=== PATIENT | male | born 1960 | race Caucasian/White ===

== ENCOUNTER 2019-10-21 14:17 | Inpatient (IN) | payer OTHER, SELFPAY ==
[~2019-10-21] VITALS: Ht 167.6 cm; Wt 83.5 kg
--- NOTE | 2019-10-21 14:21 | NUR ---
Patient BIBA ALS accompanied by Jenae REYES, transferred to bed 10. RN evaluating patient at bedside.
[2019-10-21 14:22] VITALS: BP 120/78
[2019-10-21] MEDS ORDERED: NACL 0.9% 1,000 ML IV SCH (14:22)
[2019-10-21] MEDS ORDERED: ACETAMINOPHEN EXTRA STRENGTH 500 MG TAB PO ONE (14:25)
--- NOTE | 2019-10-21 14:37 | NUR ---
Patient taken to CT scan/x-ray via gurney by shoutr.
--- NOTE | 2019-10-21 14:38 | NUR ---
58 Y/O MALE BIBA ALS FROM HOME FOR ALTERED MENTAL STATUS. PER EMS PT WAS LAST SEEN NORMAL YESTERDAY. PT AOX1. UNABLE TO ANSWER QUESTIONS APPROPRIATELY. RR EVEN AND UNLABORED, SLIGHTLY TACHYPNIC. AROUSABLE TO VOICE. POSITIONED FOR COMFORT, HOB ELEVATED. MEDHX: DENIES
--- NOTE | 2019-10-21 14:47 | NUR ---
Patient returned from CT scan/x-ray. RN re-evaluating patient at bedside.
--- NOTE | 2019-10-21 14:53 | NUR ---
LAB AT BEDSIDE FOR BLOOD AND CULTURE DRAW
--- NOTE | 2019-10-21 14:58 | NUR ---
URINE COLLECTED FROM PT AND GIVEN TO NURSE ORTHOPAEDIC
[2019-10-21 15:07] LABS: BASOPHILS % (AUTO) 0.4 % (0.0-2.0); HEMATOCRIT 42.9 % (36-52); HEMOGLOBIN 14.8 g/dL (12.0-18.0); LYMPHOCYTES # (AUTO) 1.2 K/uL (2.0-11.5); LYMPHOCYTES % (AUTO) 26.1 % (20.5-51.1); MEAN CORPUSCULAR HEMOGLOBIN 33 pg (27-31); MEAN CORPUSCULAR HGB CONC 35 g/dL (33-37); MEAN CORPUSCULAR VOLUME 94.5 fL (80-94); MONOCYTES # (AUTO) 0.6 K/uL (0.8-1.0); MONOCYTES % (AUTO) 12.4 % (1.7-9.3); NEUTROPHILS # (AUTO) 2.8 K/uL (1.8-7.7); NEUTROPHILS % (AUTO) 60.1 % (42.2-75.2); PLATELET COUNT (AUTO) 192 K/uL (140-450); RED BLOOD CELL COUNT(AUTO) 4.54 MIL/uL (4.20-6.10); RED CELL DISTRIBUTION WIDTH 12.3 % (11.6-13.7); WHITE BLOOD COUNT (AUTO) 4.6 K/uL (4.8-10.8)
--- NOTE | 2019-10-21 15:07 | NUR ---
RT AT BEDSIDE FOR RESPIRATORY INTERVENTION
[2019-10-21 15:21] LABS: PROTHROMBIN TIME 10.1 secs (10.8-13.4)
[2019-10-21 15:29] LABS: ACETAMINOPHEN < 0.5 ug/ml (10-30); SALICYLATE < 2.8 mg/dL (2.8-20.0)
[2019-10-21 15:29] LABS: APPEARANCE,URINE CLEAR (CLEAR); BILIRUBIN,URINE NEGATIVE (NEGATIVE); BLOOD, URINE NEGATIVE (NEGATIVE); COLOR,URINE DARK YELLOW (YELLOW); LEUKOCYTE ESTERASE ,URINE NEGATIVE (NEGATIVE); NITRITE, URINE NEGATIVE (NEGATIVE); PH,URINE 6.5 (5.0-9.0); UGLUCOSE NEGATIVE (NEGATIVE)
[2019-10-21 15:42] LABS: BARBITURATE, URINE NEGATIVE ng/ml (NEG <=200); BENZODIAZEPINE, URINE NEGATIVE ng/mL (NEG <=200); CANNABINOID, URINE NEGATIVE ng/mL (NEG <=50); COCAINE, URINE NEGATIVE ng/mL (NEG <=300); OPIATE, URINE NEGATIVE ng/mL (NEG <=2000); PHENCYCLIDINE SCREEN,URINE NEGATIVE ng/mL (NEG <=25)
--- NOTE | 2019-10-21 15:59 | NUR ---
TROPONIN 0.082-- CRITICAL VALUE RECEIVED FROM LAB. DR VALLEJO MADE AWARE
[2019-10-21] MEDS ORDERED: ASPIRIN 325 MG TAB PO ONE (16:00)
[2019-10-21 16:12] LABS: ANION GAP 16.8 (8-16); CARBON DIOXIDE 23.2 mmol/L (21-32)
[2019-10-21 16:13] LABS: ALBUMIN 2.9 g/dL (3.4-5.0); TOTAL BILIRUBIN 0.7 mg/dL (0.0-1.0)
--- NOTE | 2019-10-21 17:57 | NUR ---
RESTING IN BED ON PHONE WITH FAMILY MEMBER. AWAKE AND ALERT. VSS. WILL CONTINUE TO MONITOR
--- NOTE | 2019-10-21 18:06 | NUR ---
DR BERG AT BEDSIDE SPEAKING WITH PT
[2019-10-21] MEDS: DEXT 5% / NACL 0.9% 500 ML IV SCH ×2 (18:16→21:49)
[2019-10-21] MEDS ORDERED: DEXT 5% /NACL 0.9% 1,000 ML IV SCH (18:22)
[2019-10-21] MEDS ORDERED: HYDROcodone/APAP 7.5/325 MG 1 TAB PO PRN ×2 (18:25→18:30)
[2019-10-21] MEDS ORDERED: NITROGLYCERIN 0.4 MG TAB SL PRN ×2 (18:25→18:30)
[2019-10-21] MEDS ORDERED: ACETAMINOPHEN 325 MG TAB PO PRN ×2 (18:25→18:30)
[2019-10-21] MEDS ORDERED: ONDANSETRON 4 MG/2 ML VIAL IM/IVP PRN ×2 (18:25→18:30)
[2019-10-21] MEDS ORDERED: DOCUSATE SODIUM 100 MG GELCAP PO PRN ×2 (18:25→18:30)
[2019-10-21] MEDS ORDERED: ALBUTEROL HFA MDI 90 MCG/ACTUATION 8 GM INH PRN ×2 (18:30→18:45)
[2019-10-21] MEDS ORDERED: MECLIZINE 25 MG TAB PO PRN ×2 (18:30→18:45)
--- NOTE | 2019-10-21 18:33 | NUR ---
COVID-19 SWAB COLLECTED FROM PT
[2019-10-21 18:42] LABS: PROTHROMBIN TIME 10.1 secs (10.8-13.4)
--- NOTE | 2019-10-21 18:57 | NUR ---
SPOKE TO PTS SON ZOROASTRIAN-- STATES HE WILL CALL BACK LATER FOR AN UPDATE.
[2019-10-21 19:05] LABS: CHOL/HDL RATIO 4.5 (1-4.5); FREE T4 (FREE THYROXINE) 1.12 ng/dL (0.76-1.46); MAGNESIUM 1.9 mg/dL (1.8-2.4); PHOSPHORUS 2.6 mg/dL (2.5-4.9); THYROID STIMULATING HORMONE 0.58 uIU/mL (0.34-3.74)
--- NOTE | 2019-10-21 19:18 | NUR ---
Pt report given to NAT LOCO. Transfer of care at this time.
--- NOTE | 2019-10-21 19:20 | NUR ---
REPORT RECIVED FROM CRUZITO JOHNS. CONTINUATION OF CARE.
[2019-10-21] MEDS: DEXT 5% /NACL 0.9% 1,000 ML IV SCH (19:30)
--- NOTE | 2019-10-21 20:48 | NUR ---
UA AT BEDSIDE.
[2019-10-21] MEDS ORDERED: METOPROLOL 25 MG TAB PO SCH (21:00)
[2019-10-21] MEDS ORDERED: POTASSIUM CHLORIDE 10 MEQ TABER PO ONE (21:00)
[2019-10-21] MEDS ORDERED: cefTRIAXone 1,000 MG VIAL ONE (22:06)
[2019-10-21] MEDS: ATORVASTATIN 20 MG TAB PO SCH (22:15)
--- NOTE | 2019-10-21 23:29 | NUR ---
PT A&O X 4. RESPIRATIONS ARE EVEN AND UNLABORED. PT VSS. PT DENIES PAIN AT THIS TIME.
--- NOTE | 2019-10-22 00:12 | NUR ---
PT RESPONSIVE TO VERBAL STIMULI. A&O X 4. RESPIRATIONS ARE EVEN AND UNLABORED. PT VSS. PT DENIES PAIN AT THIS TIME. BED IS LOCKED AND IN LOWEST POSITION.
--- NOTE | 2019-10-22 01:45 | NUR ---
SPOKE WITH PT SON JARON @ [phone]. GAVE REPORT TO HIM ABOUT PT CONDITION WITH PERMISSION OF PT.
[2019-10-22] MEDS: DEXT 5% / NACL 0.9% 500 ML IV SCH ×4 (01:55→14:12)
--- NOTE | 2019-10-22 02:02 | NUR ---
PT RESTIONG WITH EYES CLOSED. PT RESPONSIVE TO VERBAL STIMULI. A&O X 4. RESPIRATIONS ARE EVEN AND UNLABORED. PT REMAINS ON CAREER DEVELOPMENT SPECIALIST. PT VSS. PT DENIES PAIN AT THIS TIME. BED IS LOCKED AND IN LOWEST POSITION. ALL NEEDS MET AT THIS TIME.
--- NOTE | 2019-10-22 04:22 | NUR ---
PT RESPONSIVE TO VERBAL STIMULI. A&O X 4. SKIN IS WARM AND DRY TO TOUCH. NO SOB, O2SAT @ 98% RA. IV SITE REMAINS PATENT. PT REMAINS ON STRAIGHT TRUCK DRIVER. PT VSS. PT DENIES PAIN AT THIS TIME. BED IS LOCKED AND IN LOWEST POSITION. ALL NEEDS MET AT THIS TIME.
--- NOTE | 2019-10-22 06:05 | NUR ---
PT RESPONSIVE TO VERBAL STIMULI. A&O X 4. PT REMAINS ON SHEET METAL SHOP SUPERVISOR. PT VSS. PT DENIES PAIN AT THIS TIME. BED IS LOCKED AND IN LOWEST POSITION.
--- NOTE | 2019-10-22 07:33 | NUR ---
LAB AT BEDSIDE.
--- NOTE | 2019-10-22 07:40 | NUR ---
REPORT GIVEN TO AVRIL RN. TRANSFER OF CARE.
--- NOTE | 2019-10-22 08:27 | NUR ---
REPORT GIVEN TO CRUZITO JOHNS--PT REMAINS ON A TELE HOLD AWAKE ALERT DENIES PAIN, NO SOB, DENIES CP, OR HEADACHE----
--- NOTE | 2019-10-22 08:30 | NUR ---
RECEIVED REPORT FROM NAT ANDREA. TRANSFER OF CARE AT THIS TIME
[2019-10-22] MEDS ORDERED: DEXAMETHASONE 4 MG TAB PO SCH ×2 (09:00)
[2019-10-22] MEDS ORDERED: AZITHROMYCIN 250 MG TAB PO SCH (09:00)
[2019-10-22] MEDS ORDERED: ECOTRIN 81 MG TABEC PO SCH (09:00)
[2019-10-22] MEDS ORDERED: lisinopriL 5 MG TAB PO SCH (09:00)
--- NOTE | 2019-10-22 09:04 | NUR ---
TROPONIN 0.089-- DR BERG MADE AWARE
[2019-10-22] MEDS: ECOTRIN 81 MG TABEC PO SCH (09:12)
[2019-10-22] MEDS: METOPROLOL 25 MG TAB PO SCH ×2 (09:14→21:01)
[2019-10-22] MEDS: lisinopriL 5 MG TAB PO SCH (09:14)
[2019-10-22] MEDS: AZITHROMYCIN 250 MG TAB PO SCH (09:15)
--- NOTE | 2019-10-22 09:41 | NUR ---
RESTING IN BED AWAKE AND ALERT. NO COMPLAINTS AT THIS TIME. WILL CONTINUE TO MONITOR
[2019-10-22] MEDS: DEXT 5% /NACL 0.9% 1,000 ML IV SCH (11:10)
--- NOTE | 2019-10-22 11:46 | NUR ---
PT AWAKE AND ALERT. WAS GIVEN CELLPHONE. FAMILY INFORMED THAT THEY CAN CONTACT PT VIA CELLPHONE. NO COMPLAINTS AT THIS TIME. VSS
--- NOTE | 2019-10-22 12:26 | NUR ---
TROPONIN 0.070-- CRITICAL VALUE RECEIVED FROM LAB. DR BERG MADE AWARE.
--- NOTE | 2019-10-22 12:45 | NUR ---
PT RESTING IN BED, SIDE RAIL X1
--- NOTE | 2019-10-22 13:01 | NUR ---
PT RESTING IN BED, SIDE RAIL X1
--- NOTE | 2019-10-22 14:29 | NUR ---
EResting in bed watching television. No complaints at this time. Awake and alert. Will continue to monitor
--- NOTE | 2019-10-22 15:00 | NUR ---
RECEIVED REPORT FROM ELECT[employer]ODU[employer] SALES ENGINEER CRUZITO AT BEDSIDE FOR CONTINUITY OF CARE. PATIENT AOX3, VIETNAMESE SPEAKING. ABLE TO VERBALIZED NEEDS. RESPIRATIONS EVEN AND UNLABORED ON ROOM AIR. VS WNL. NO COMPLAINTS OF PAIN AT THIS TIME. IV SITE INTACT, ASYMPTOMATIC, INFUSING IVF WELL. PATIENT DX ALOC, NPO AT MOMENT, BUT STATING HUNGRY, WILL FORWARD PATIENT'S REQUEST TO DOCTOR. PT IS ON DROPLET PRECAUTION PENDING R/O COVID. ORIENTED PATIENT TO ROOM, TV, CALL LIGHT, BATHROOM. DROPLET PRECAUTIONS IN PLACE, CALL LIGHT WITHIN REACH, WILL CONTINUE TO MONITOR PATIENT.
--- NOTE | 2019-10-22 15:00 | NUR ---
report given to dino gutierrez. transfer of care at this time.
[2019-10-22 15:55] VITALS: BP 119/67
[2019-10-22] MEDS ORDERED: ATORVASTATIN 20 MG TAB PO SCH (17:00)
[2019-10-22] MEDS: ATORVASTATIN 20 MG TAB PO SCH (17:58)
--- NOTE | 2019-10-22 18:00 | NUR ---
ORDERED MEDICATIONS GIVEN TO PATIENT. PATIENT TOLERATED IT WELL. PATIENT CURRENTLY EATING DINNER. NO COMPLAINTS AT THIS TIME. WILL CONTINUE TO MONITOR PATIENT.
--- NOTE | 2019-10-22 18:17 | NUR ---
ORDERED MEDICATION GIVEN TO PATIENT. PATIENT TOLERATED IT WELL. NO COMPLAINTS AT THIS TIME. O2 88% ON 15L NRB, PATIENT AWARE HE NEEDS BEDREST AND TO BREATHE DEEPLY AND SLOWLY. IF ANXIOUS, CAN CALL RN FOR PRN MEDICATION. PATIENT VERBALIZED UNDERSTANDING. WILL CONTINUE TO MONITOR PATIENT. Addendum: 10/22/19 at 1929 by Yoan Swanson RN WRONG PATIENT.
--- NOTE | 2019-10-22 19:15 | NUR ---
REPORT GIVEN TO [employer]NER FORMER MACHINE OPERATOR NURSE FOR CONTINUITY OF CARE. PATIENT IN STABLE CONDITION.
--- NOTE | 2019-10-22 19:15 | NUR ---
RECEIVED PT AAOX4 - BUT NEED REINFORCEMENT MOST ESPECIALLY ON DATE AND TIME . NID - O2 SAT WNL - RA . IV SITE INTACT AND PATENT. DENIES ANY PAIN. SAFETY MEASURES IN PLACE - CALL LIGHT /URINAL WITHIN REACH . PLAN OF CARE DISCUSSED AND VERBALIZE UNDERSTANDING- NEEDS RE INFORCEMENT . ON TELE MONITOR . WILL CONT. TO MONITOR .
[2019-10-22 20:00] VITALS: BP 125/75
[2019-10-22] MEDS ORDERED: CRUSHER, PILL MC ONE (20:47)
--- NOTE | 2019-10-22 22:00 | NUR ---
MADE ROUNDS , I GOT TEL. CALL FROM PT'S BROTHER AND HE SAID HE WANTS TO KNOW ABOUT THE UPDATE W/ REGARD TO THE PT . I TOLD HIM W/ THAT MATTER THE DOCTOR WILL DISCUSS TO HIM ACCORDING TO HOSPITAL PROTOCOL AND PT. PERMISSION. HE GAVE HIS THE CONTACT NUMBERS.- WILL ENDORSE TO AM SHIFT .
[2019-10-23] VITALS: BP 120/70
--- NOTE | 2019-10-23 | NUR ---
MADE ROUNDS , NO S/SX OF ACUTE DISTRESS NOTED - O2 SAT WNL.CALL LIGHT WITHIN REACH.
--- NOTE | 2019-10-23 02:00 | NUR ---
SLEEPING - CHEST RISE AND FALL EQUALLY - WILL CONT. TO MONITOR . CALL LIGHT WITHIN REACH .
[2019-10-23 04:00] VITALS: BP 122/76
--- NOTE | 2019-10-23 04:00 | NUR ---
MADE ROUNDS . NO S/SX OF ACUTE DISTRESS NOTED AT THIS TIME. O2 SAT WNL .
[2019-10-23] MEDS: DEXT 5% /NACL 0.9% 1,000 ML IV SCH (04:20)
--- NOTE | 2019-10-23 06:00 | NUR ---
NO COMPLAIN MADE . WILL CONT. TO MONITOR.
--- NOTE | 2019-10-23 07:10 | NUR ---
ENDORSED TO AM SHIFT - PT- STABLE .
--- NOTE | 2019-10-23 07:10 | NUR ---
Received report from pm nurse Leny. Pt resting in bed, awake, no signs of distress. Respirations even & nonlabored in room air. Right forearm IV 20G intact with ongoing D5NS @ 80ml/h.
[2019-10-23 07:42] LABS: ANION GAP 13.7 (8-16); CARBON DIOXIDE 24.5 mmol/L (21-32); CREATININE 0.7 mg/dL (0.6-1.3); POTASSIUM 4.2 mmol/L (3.5-5.1)
[2019-10-23 07:51] LABS: BASOPHILS # (AUTO) 0.2 K/uL (0.00-0.22); BASOPHILS % (AUTO) 3.6 % (0.0-2.0); EOSINOPHILS % (AUTO) 0.2 % (0.0-4.0); HEMATOCRIT 43.3 % (36-52); LYMPHOCYTES # (AUTO) 1.3 K/uL (2.0-11.5); LYMPHOCYTES % (AUTO) 19.4 % (20.5-51.1); MEAN CORPUSCULAR HEMOGLOBIN 33 pg (27-31); MEAN CORPUSCULAR HGB CONC 35 g/dL (33-37); MEAN CORPUSCULAR VOLUME 94.9 fL (80-94); MONOCYTES # (AUTO) 0.5 K/uL (0.8-1.0); MONOCYTES % (AUTO) 7.8 % (1.7-9.3); NEUTROPHILS # (AUTO) 4.6 K/uL (1.8-7.7); PLATELET COUNT (AUTO) 229 K/uL (140-450); RED BLOOD CELL COUNT(AUTO) 4.56 MIL/uL (4.20-6.10); WHITE BLOOD COUNT (AUTO) 6.7 K/uL (4.8-10.8)
[2019-10-23 08:00] VITALS: BP 111/72
[2019-10-23] MEDS: METOPROLOL 25 MG TAB PO SCH ×2 (09:00→09:02)
[2019-10-23] MEDS: AZITHROMYCIN 250 MG TAB PO SCH (09:03)
[2019-10-23] MEDS: ECOTRIN 81 MG TABEC PO SCH (09:03)
[2019-10-23] MEDS: lisinopriL 5 MG TAB PO SCH (09:03)
[2019-10-23 09:06] LABS: T4 (THYROXINE) 8.1 ug/dL (4.5-12.0)
--- NOTE | 2019-10-23 10:12 | NUR ---
PATIENT HAS BEEN SCREENED AND CATEGORIZED MODERATE NUTRITION RISK. PATIENT WILL BE SEEN WITHIN 3-5 DAYS OF ADMISSION. 10/23/19 10/25/[address]
--- NOTE | 2019-10-23 11:15 | NUR ---
Patient resting in bed, watching TV, verbally responsive in khmer. Pt shows no signs of distress, respirations even & nonlabored in room air. Call light and bedside phone placed within reach.
[2019-10-23 12:00] VITALS: BP 112/73
--- NOTE | 2019-10-23 13:28 | NUR ---
PROJECT DEVELOPMENT COORDINATOR NOTE: Patient's Orientation Unable To Assess Information Provided By LANI MOJICA Comments SW WAS UNABLE TO MEET PATIENT AT BEDSIDE DUE TO MEDICAL CONDITION. Unix Developer, Realtionship and Phone Number LANI MOJICA [phone] Healthcare Power of Pet Training Instructor No Does Patient Have a POLST No Identifying Problems No Social Work Triggers Is A Social Work Consult Needed No Mandate Report Filed No Explanation Of Identifying Problems PATIENT IS A 58-YEAR-OLD MALE ADMITTED FOR ALOC. PATIENT'S PMHX WAS DOCUMENTED UNREMARKABLE. Admitted From Home Pre-Admission Level Of Functioning Status Independent/Ambulatory Prior Resources/Services Used In Last 12 Months No Prior Resources Used Prior DME No Prior DME Used Living Situation Lives With Family House Patient Had Caregiver No Home Support No Caregiver Issues Financial Issues No Known Financial Issue Referral To The Financial Counselor Needed No Factors/Needs No D/C Needs Identified Pt/Rep Participated In Discharge Plan Yes Patient/Family Agress With Discharge Plan Yes Discharge Plan Comments TENTATIVE DISCHARGE PLAN IS FOR PATIENT TO RETURN HOME. DC Plan Status Initiated
[2019-10-23] MEDS ORDERED: LISI-424 PO (15:09)
[2019-10-23] MEDS ORDERED: VITD400 PO (15:09)
[2019-10-23] MEDS ORDERED: METO25TA PO (15:09)
[2019-10-23] MEDS ORDERED: ZINC220C28 PO (15:09)
[2019-10-23] MEDS ORDERED: DEC4 PO (15:09)
[2019-10-23] MEDS ORDERED: ASPI-1173 PO (15:09)
[2019-10-23] MEDS ORDERED: AZIT250T11 PO (15:09)
[2019-10-23] MEDS ORDERED: ATOR20TA40 PO (15:09)
[2019-10-23] MEDS ORDERED: ASCO500T95 PO (15:09)
[2019-10-23 16:00] VITALS: BP 119/71
--- NOTE | 2019-10-23 16:19 | NUR ---
Written and verbal discharge instructions provided to patient. Instructed on COVID-19 droplet precautions, prescriptions @ [facility], PCP f/u in 5 days ([facility] contact info provided if no PCP), and side effects on new prescriptions. Patient verbalized understanding and agree with plan of care at home. Right AC IV discontinued and covered with dry gauze and tape. Pt requesting for shirt. Security notified. Per patient, his niece with pick him up via private vehicle.
--- NOTE | 2019-10-23 17:00 | NUR ---
Large shirt provided to patient from donation closet. Patient able to don clothes independently.
--- NOTE | 2019-10-23 17:40 | NUR ---
Patient discharged at this time. Ambulated off unit with steady gait, no signs of distress, pt wearing surgical mask. Patient's niece at front lobby waiting for patient with private vehicle. All belongings with patient upon departure.
== END 2019-10-23 17:40 | disposition home or self-care (01) | DRG 177 ==
LOC: MED 14:17 → EEVIPCON 21:09 → MTU 21:09 → MMU 10-22 07:35 → MTU 10-22 15:40
PROVIDERS: ADMIT Family Medicine; ATTEND Family Medicine
DX: U07.1 COVID-19 (principal); I21.A1 Myocardial infarction type 2; J12.89 Other viral pneumonia; E44.0 Moderate protein-calorie malnutrition; J98.11 Atelectasis; E86.0 Dehydration; D72.819 Decreased white blood cell count, unspecified; Z68.29 Body mass index [BMI] 29.0-29.9, adult; G90.9 Disorder of the autonomic nervous system, unspecified
CPT/HCPCS: 36415; 36600; 70450; 71045; 80048; 80053; 80305; 81003; 82140; 82150; 82550; 82803; 83036; 83605; 83615; 83690; 83735; 83880; 84100; 84436; 84439; 84443; 84479; 84484; 85025; 85379; 85610; 85651; 85730; 86140; 87040; 87081; 87086; 93005; 93880; 96360; 99291; G0480; G0482; J0696; J1644; J7030; J7060; Q0092; U0003-CS